=== PATIENT | female | born 1985 | race Caucasian/White ===

== ENCOUNTER 2018-01-01 23:49 | Emergency (ER) | payer MEDICAID ==
--- NOTE | 2018-01-02 01:19 | ER Document Report ---
ED Medical Screen (RME) - General Chief Complaint: Abscess Stated Complaint: ARM PAIN Time Seen by Provider: 01/02/18 01:17 Mode of Arrival: Ambulatory Information source: Patient Notes: 32-year-old female presents to ED for abscess to the left arm. She states that she just moved here from [place] about a week ago. She states that before moving here from [place] she was in the hospital getting IV antibiotics for this infection. She states that she relapsed and used meth IV and that is what caused the infection in the first place. She states she has not used anything since then. She states she was sent home with antibiotics but she lost them and has not had any recently. She states she has a history of 4 surgeries to the left knee 2 surgeries to the right knee. 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 She states she smokes a pack a day she drinks monthly and has not used any drugs since relapse in a couple weeks ago. I have greeted and performed a rapid initial assessment of this patient. A comprehensive ED assessment and evaluation of the patient, analysis of test results and completion of medical decision making process will be conducted by an additional ED providers. Physical Exam - Vital signs Vitals: Temp Pulse Resp BP Pulse Ox 99 F 81 19 114/62 100 01/02/18 00:14 01/02/18 00:14 01/02/18 00:14 01/02/18 00:14 01/02/18 00:14 Course - Vital Signs Vital signs: Temp Pulse Resp BP Pulse Ox 98.3 F 85 15 132/62 H 99 01/02/18 00:16 01/02/18 00:16 01/02/18 00:16 01/02/18 00:16 01/02/18 00:16
[2018-01-02] MEDS ORDERED: DOXYCYCLINE HYCLATE 100 MG TABLET PO ONE (03:19)
[2018-01-02] MEDS ORDERED: SULFAMETHOXAZOLE/TRIMETHOPRIM 800-160 MG TABLET PO ONE (03:19)
[2018-01-02] MEDS ORDERED: LIDOCAINE 1%/EPINEPHRINE INJ 20 ML VIAL INJ ONE (03:20)
[2018-01-02] MEDS ORDERED: HYDROCODONE/ACETAMINOPHEN 5-325 MG TABLET PO ONE (03:23)
--- NOTE | 2018-01-02 03:23 | ER Document Report ---
ED General - General Chief Complaint: Abscess Stated Complaint: ARM PAIN Time Seen by Provider: 01/02/18 01:17 Mode of Arrival: Ambulatory Notes: Patient is a 32-year-old female presents with complaint of an abscess over the left elbow. Patient was admitted to the hospital [facility] week ago. She was given IV antibiotics and discharged. She lost antibiotics and therefore has not been taking them now she has developed an abscess over her left elbow. Initially occurred because she had injected methamphetamine. Patient moved to this area to get away from drugs and is now staying with friends. Friends say that since moving here she has not had any further drugs. She denies any other drug use. She denies any vomiting. No fevers. No other complaints at this time. - Related Data Allergies/Adverse Reactions: ketorolac [From Toradol] Allergy (Verified 01/02/18 03:38) tramadol Allergy (Verified 01/02/18 03:38) dicyclomine [From Bentyl] Adverse Reaction (Verified 01/02/18 03:38) morphine Adverse Reaction (Verified 01/02/18 03:38) Past Medical History - General Information source: Patient - Social History Smoking Status: Current Every Day Smoker Frequency of alcohol use: None Drug Abuse: Methamphetamine Family History: Reviewed & Not Pertinent Review of Systems - Review of Systems Notes: My Normal Review Basic REVIEW OF SYSTEMS: CONSTITUTIONAL : Denies fever, chills, or sweats. Denies recent illness. MUSCULOSKELETAL: Left arm pain. SKIN: Abscess of her lateral left elbow. HEMATOLOGIC : Denies easy bruising or bleeding. NEUROLOGICAL: Denies sensory or motor loss. ALL OTHER SYSTEMS REVIEWED AND NEGATIVE. Physical Exam - Vital signs Vitals: Temp Pulse Resp BP Pulse Ox 99 F 81 19 114/62 100 01/02/18 00:14 01/02/18 00:14 01/02/18 00:14 01/02/18 00:14 01/02/18 00:14 - Notes Notes: General Appearance: Well nourished, alert, cooperative, no acute distress, moderate obvious discomfort. Vitals: reviewed, See vital signs table. Eyes: PERRL, EOMI, Conjuctiva clear Lungs: No wheezing, No rales, No rhonci, No accessory muscle use, good air exchange bilaterally. Heart: Normal rate, Regular rythm, No murmur, no rub Extremities: strength 5/5 in all extremities, good pulses in all extremities, patient has a area of fluctuance and induration on the lateral aspect of the left elbow and proximal forearm. Fluctuance induration appears to involve the subcutaneous region. Minimal surrounding erythema. Patient has full range of motion of the elbow. Skin: warm, dry, appropriate color, no rash Neuro: speech clear, oriented x 3, normal affect, responds appropriately to questions. Course - Re-evaluation Re-evalutation: 01/02/18 04:49 Patient is feeling much improved after incision and drainage abscess over the lateral aspect of the elbow. Large amount of purulent drainage was expressed. Abscess wound was flushed and irrigated with saline. It was then packed with iodoform gauze. I then placed a Xeroform dressing over it. We will have the patient return in 2 days for reevaluation. I placed her on doxycycline. Patient to return to ER immediately if she has worsening redness or swelling or she has further concerns at her infection is worsening. Patient agrees with plan will be discharged home. Dictation of this chart was performed using voice recognition software; therefore, there may be some unintended grammatical errors. - Vital Signs Vital signs: Temp Pulse Resp BP Pulse Ox 98.3 F 85 15 132/62 H 99 01/02/18 00:16 01/02/18 00:16 01/02/18 00:16 01/02/18 00:16 01/02/18 00:16 Procedures - Incision and Drainage right arm Type: Simple Anesthetic type: 1% Lidocaine w/epi mL's of anesthetic: 2 Blade size: 11 I&D procedure: Shurclens applied Incision Method: Incision made by scalpel Amount/type of drainage: 10mls of purulen drainage Discharge - Discharge Clinical Impression: Abscess Condition: Good Disposition: HOME, SELF-CARE Additional Instructions: ABSCESS: You have an abscess (boil). This a pus-forming infection, usually due to staph. Some boils may be left to drain on their own, but most require lancing. From the time the tender lump first appears, it may be three or four days before the abscess is ready to randy. Local heat and rest help at this stage of treatment. An antibiotic may prevent spread of the infection. Once the abscess is opened, packing may be placed into it. This is done so pus is not sealed inside by premature closure of the cavity. The packing will be removed at your follow-up visit or you may be advised to remove it yourself at home. Sometimes this packing must be replaced a few times during healing. The wound will heal with surprisingly little scar. Depending on the size and location of an abscess, healing can take one to four weeks. You may shower and wash the area around the incision site two or three times a day. Antibiotics may be prescribed, but are usually not necessary after an abscess has been drained. If you develop fever, chills, worsening pain, or increasing swelling in the area, call the doctor or return immediately. POST INCISION AND DRAINAGE: You have had an incision made to allow drainage of an abscess. The incision must remain open so that pus and debris can drain from the wound. If the abscess cavity is large, packing is placed. This keeps the tissues from collapsing and trapping pus inside, while the body shrinks the cavity. The packing may need to be replaced every day or two. The physician will instruct you on the packing. Keep a bulky dressing over the area. Replace it if it becomes saturated with blood or pus. Do not disturb the packing (if present). You may shower and cleanse the area with gentle soap and warm water two or three times a day. Local warmth may be soothing, and may promote faster healing. Return if you develop high fever or chills, or if you note spreading redness, increasing swelling, or increasing tenderness. ORAL NARCOTIC MEDICATION: You have been given a prescription for pain control. This medication is a narcotic. It's best taken with food, as nausea can result if taken on an empty stomach. Don't operate machinery or drive within six hours of taking this medication. Do not combine this medicine with alcohol, or with any medication which can cause sedation (such as cold tablets or sleeping pills) unless you get permission from the physician. Narcotics tend to cause constipation. If possible, drink plenty of fluids and eat a diet high in fiber and fruits. DOXYCYCLINE: Doxycycline (Vibramycin, Doryx) is an antibiotic of the tetracycline family. This type of drug is useful for infections of the respiratory tract and genital tract, and is sometimes used for intestinal infections. Unlike most tetracyclines, doxycycline can be taken with food. It is longer acting, and (usually) less prone to side effects than regular tetracycline. Tetracycline antibiotics can stain immature teeth and SHOULD NOT BE TAKEN BY CHILDREN, NURSING MOTHERS, OR WOMEN. Tetracyclines can make you more prone to sunburn. Abdominal cramping, nausea, and diarrhea are occasional side effects. Women may experience vaginal yeast infections. Call the doctor at once if you develop hives, itching, shortness of breath , or lightheadedness. FOLLOW-UP CARE: If you experience worsening or a significant change in your symptoms, return to the Emergency Department at any time for re-evaluation. Please return to the ER immediately if he develops fevers, redness, or swelling that spreads up or down her arm. Please return to the ER in 2 days for reassessment of your abscess. Please keep the area dry. Do not go into the ocean water. Take the antibiotics as prescribed. Doxycycline will make your skin more sensitive to the sun so please make sure you keep your skin covered or wear sunscreen whenever out in the sun. Prescriptions: Doxycycline Hyclate 100 mg PO BID #14 capsule Forms: Return to Work
[2018-01-02] MEDS ORDERED: LORAZEPAM INJ 2 MG/1 ML VIAL IM ONE (04:01)
[2018-01-02] MEDS ORDERED: HYDROCODONE/ACETAMINOPHEN 5-325 MG (6 TAB/ER DISP) PO PRN (04:42)
[2018-01-02 05:01] VITALS: BP 106/61
== END 2018-01-02 05:02 | disposition home or self-care (01) ==
LOC: ER 23:49
DX: L02.413 Cutaneous abscess of right upper limb (principal); T36.96XA Underdosing of unspecified systemic antibiotic, initial encounter; Z91.128 Patient's intentional underdosing of medication regimen for other reason; Z91.14 Patient's other noncompliance with medication regimen; F15.10 Other stimulant abuse, uncomplicated; F17.200 Nicotine dependence, unspecified, uncomplicated; Z88.8 Allergy status to other drugs, medicaments and biological substances; Z88.5 Allergy status to narcotic agent
CPT/HCPCS: 99283; 96372; 10060; A6266; J3490; J2060

== ENCOUNTER 2018-01-04 01:57 | Emergency (ER) | payer MEDICAID ==
--- NOTE | 2018-01-04 03:47 | ER Document Report ---
ED General - General Chief Complaint: Wound check L arm- to get packing removed Stated Complaint: ARM PROBLEM Time Seen by Provider: 01/04/18 02:50 Notes: Patient is a 32-year-old female who I saw 2 days ago and performed I&D in her left arm. She is here for abscess recheck. The other complaints is that she has anxiety depression. She says she is not suicidal homicidal. She also mentions wanting help getting a bus ticket back to [place]. She denies any fevers. No spreading redness or swelling from the area where the abscess was. No other complications associated with the previous abscess. TRAVEL OUTSIDE OF THE [place] IN LAST 30 DAYS: No - Related Data Allergies/Adverse Reactions: ketorolac [From Toradol] Allergy (Verified 01/02/18 03:38) tramadol Allergy (Verified 01/02/18 03:38) dicyclomine [From Bentyl] Adverse Reaction (Verified 01/02/18 03:38) morphine Adverse Reaction (Verified 01/02/18 03:38) Past Medical History - Social History Smoking Status: Current Every Day Smoker Frequency of alcohol use: None Drug Abuse: Other - former IV drug abuser Family History: Reviewed & Not Pertinent Renal/ Medical History: Denies: Hx Peritoneal Dialysis Review of Systems - Review of Systems Notes: My Normal Review Basic REVIEW OF SYSTEMS: CONSTITUTIONAL : Denies fever, chills, or sweats. Denies recent illness. RESPIRATORY: Denies cough, cold, or chest congestion. Denies shortness of breath, difficulty breathing, or wheezing. GASTROINTESTINAL: Denies abdominal pain. Denies nausea, vomiting, or diarrhea. Denies constipation. Last BM: GENITOURINARY: Denies difficulty urinating, painful urination, burning, frequency, or blood in urine. MUSCULOSKELETAL: Denies neck or back pain or joint pain or swelling. SKIN: Denies rash or skin lesions. NEUROLOGICAL: No sensory or motor loss in the left upper extremity. PSYCHIATRIC: Depression ALL OTHER SYSTEMS REVIEWED AND NEGATIVE. Physical Exam - Vital signs Vitals: Temp Pulse Resp BP Pulse Ox 99.4 F 90 16 122/73 100 01/04/18 02:00 01/04/18 02:00 01/04/18 02:00 01/04/18 02:00 01/04/18 02:00 - Notes Notes: General Appearance: Well nourished, alert, cooperative, no acute distress, mild obvious discomfort. Vitals: reviewed, See vital signs table. Eyes: PERRL, EOMI, Conjuctiva clear Extremities: , good pulses in all extremities, area of previous incise abscess is healing appropriately. I did remove the packing. I did recover with gauze. There is no significant surrounding erythema. Patient is able to flex and extend her elbow. She is almost able to extend her elbow fully except for approximately last 5 of extension when she starts to have pain and therefore stops. She is able to fully flex her elbow. She is able supinate and pronate her forearm. Skin: warm, dry, appropriate color, no rash Neuro: speech clear, oriented x 3, normal affect, responds appropriately to questions. Course - Re-evaluation Re-evalutation: 01/04/18 06:25 Phone patient that we cannot provide her with a ride to [place]. I informed her she would have talked to her friends or family about that. I did offer for her to stay and speak with psychiatry about her depression the patient says her depression is not to the extent where she feels she needs to see psychiatry and prefers just to go back to her friend's house. I informed her she is more welcome to return to ER anytime if she has worsening depression or has any thoughts of suicide. Patient to return to ER also if she has spreading redness or swelling in her arm or if she is concerned that her infection is worsening. Patient agrees with plan will be discharged home. Dictation of this chart was performed using voice recognition software; therefore, there may be some unintended grammatical errors. - Vital Signs Vital signs: Temp Pulse Resp BP Pulse Ox 98.6 F 96 14 111/75 100 01/04/18 04:30 01/04/18 04:30 01/04/18 04:30 01/04/18 04:30 01/04/18 04:30 Discharge - Discharge Clinical Impression: Abscess Condition: Good Disposition: HOME, SELF-CARE Additional Instructions: Please continue to cchange the dressing daily. Take your antibiotics as prescribed. please return to the ER if you have increasing swelling, spreading redness, or have further concerns.
[2018-01-04 04:32] VITALS: BP 111/75
== END 2018-01-04 04:39 | disposition home or self-care (01) ==
LOC: ER 01:57
DX: L02.414 Cutaneous abscess of left upper limb (principal); F17.200 Nicotine dependence, unspecified, uncomplicated
CPT/HCPCS: 99282